=== PATIENT | male | born 1975 | race Hispanic/Latino ===

== ENCOUNTER 2021-04-14 09:21 | Inpatient (IN) | payer OTHER ==
[~2021-04-14] VITALS: Ht 167.6 cm; Wt 81.2 kg
--- NOTE | 2021-04-14 09:21 | NUR ---
PT TAKEN DIRECTLY TO RM 16 FOR TRIAGE, IN WHEELCHAIR O2 SAT 86 . [facility] NURSE AND MD NOTIFIED. ACCOMPANIED BY
[2021-04-14 10:10] LABS: HEMATOCRIT 43.7 % (39.0-50.0); HEMOGLOBIN 14.8 g/dl (14.0-18.0); IMMATURE GRANULOCYTES 0.4 % (0.0-5.0); MEAN CELL VOLUME 89.4 fL CALC (80.0-100.0); MEAN CORPUSCULAR HGB 30.3 pG CALC (26.0-32.0); MEAN CORPUSCULAR HGB CONC 33.9 g/dL CAL (32.0-36.0); NEUT# 6.63 thou/uL (1.82-7.42); RED BLOOD COUNT 4.89 mill/uL (4.70-6.10); RED CELL DISTRI WIDTH 12.8 % (11.5-15.5)
[2021-04-14 10:23] LABS: ALKALINE PHOSPHATASE 119 u/l (38-126); ANION GAP 15 (6-22 (CALC)); BILIRUBIN, TOTAL 0.8 mg/dL (0.0-1.4); BUN 10 mg/dL (9-20); BUN/CREATININE RATIO 14 (12-20 (CALC)); CARBON DIOXIDE 24 mmol/l (22-30); CHLORIDE 97 mmol/l (95-108); CREATININE 0.7 mg/dL (0.7-1.3); GFR > 60 ML/MIN (>=60 (CALC)); GFR FOR AFR.AMER. > 60 ML/MIN (>=60 (CALC)); POTASSIUM 3.9 mmol/l (3.5-5.1); SGOT/AST 74 u/l (17-59); SODIUM 132 mmol/l (137-146); TOTAL PROTEIN 7.7 g/dL (6.3-8.2)
--- NOTE | 2021-04-14 10:29 | NUR ---
STABLE ON MONITOR. 4L/NC, TOLERATING WELL. CALL LIGHT WITHIN REACH. WATER PROVIDED. NO OTHER CONCERNS VOICED.
[2021-04-14 10:32] LABS: MYOGLOBIN 40 ng/mL (0 - 121)
--- NOTE | 2021-04-14 11:52 | NUR ---
IV MEDS INFUSING WITHOUT DIFFICULTY. STABLE ON MONITOR. AT BEDSIDE. CALL LIGHT WITHIN REACH. NO CONCERNS VOICED.
[2021-04-14 12:32] LABS: URINE BILIRUBIN - DIPSTICK NEGATIVE (NEGATIVE); URINE BLOOD DIPSTICK NEGATIVE (NEGATIVE); URINE COLOR YELLOW; URINE GLUCOSE - DIPSTICK NEGATIVE (NEGATIVE); URINE KETONE NEGATIVE (NEGATIVE); URINE LEUK ESTERASE NEGATIVE (NEGATIVE); URINE PH 6.5 (4.5-8.0); URINE PROTEIN - DIPSTICK TRACE mg/dL (NEG-TRACE); URINE UROBILINOGEN - DIPSTICK 0.2 E.U./dL (0.2)
[2021-04-14 12:37] LABS: URINE NITRITE - DIPSTICK NEGATIVE (Negative)
--- NOTE | 2021-04-14 13:24 | NUR ---
ATTEMPTED TO CALL REPORT, NURSE TO CALL BACK.
[2021-04-14 14:00] VITALS: BP 108/75
--- NOTE | 2021-04-14 14:00 | NUR ---
BEDSIDE COMMODE PROVIDED FOR PT, REPORTS NEED FOR BM
--- NOTE | 2021-04-14 14:21 | NUR ---
REPORT GIVEN TO TEJAS COLLADO ON MEDSURG, PT ADMITTED TO [facility]
--- NOTE | 2021-04-14 14:35 | NUR ---
45 YEAR OLD MALE ARRIVED TO ED FROM HOME VIA PRIVATE VEHICLE--ADMITTED TO FLOOR VIA W/C ACCOMPANIED BY ER STAFF WITH DIAGNOSIS OF COVID PNEUMONIA. PATIENT IS ALERT, VERBAL, MAORI SPEAKING, YET SPEAKS FLUENTLY IN YI WELL, ABLE TO MAKE NEEDS KNOWN. TOLERATES MEDS WELL WHOLE. CONT OF BOWEL AND BLADDER--ABLE TO USE BSC INDEPENDENTLY. DENIES PAIN AT TIME OF ASSESSMENT. PIV SITE PATENT TO RIGHT AC AREA--FLUSHES WELL--SITE UNREMARKABLE. TO RECEIVE ABT THERAPY RELATED TO COVID PNEUMONIA. LAST BM TODAY. TELEMETRY IN PLACE WITH SR IN THE 70-80S IN ER. NKDA. REGULAR DIET/THIN LIQUIDS. SKIN ASSESSMENT COMPLETED--NO AREAS OF CONCERN NOTED. ORIENTED TO ROOM--C/L WITHIN REACH. WILL CONT TO MONITOR FOR ANY FURTHER CHANGES.
[2021-04-14 19:00] VITALS: BP 111/71
--- NOTE | 2021-04-14 20:10 | NUR ---
PT MEDICATED ORDERS PROVIDE AND ASSESSMENT COMPLETED AT THIS TIME. PT BREATHING IS SHALLOW AND LABORED UPON MY ENTERING THE ROOM. OXYGEN SAT LEVELS WERE AT 88% ON REGULAR NC 4L. OXYGEN WAS TURNED TO 6L TO BRING SAT LEVELS TO 91% AND PT PLACED IN PRONE POSITION. RESPIRATORY WAS CALLED FOR HIGHFLOW PLACEMENT.
--- NOTE | 2021-04-14 20:45 | NUR ---
PT WAS PLACED ON HIGHFLOW NC 7L AND OXYGEN SAT LEVELS ARE AT 94% ON HFNC 7L. BREATHING IS NON-LABORED AND EVEN AT THIS TIME. PT WAS INSTRUCTED THAT HE COULD TURN OVER, BUT TO LAY IN PRONE POSITION FOR AWHILE EVERY HOUR AND MUCH HE CAN FOR SLEEPING. VERBALIZED UNDERSTANDING. INCENTIVE SPIR WAS SUPPLIED AT THIS TIME, PT COUGHING DRY HACKING COUGH TO THE POINT OF GAGGING AND ALMOST VOMITING EACH TIME HE DEMONSTRATES ITS USE. HE WAS EDUCATED ON IT USE, BUT WILL NEED REINFORCED.
--- NOTE | 2021-04-15 | NUR ---
PT WAS SLEEPING, V/S ASSESSED AT THIS TIME. DENIES ANY OTHER NEEDS. RESP EVEN AND MILD LABORED.
[2021-04-15 00:31] VITALS: BP 99/62
[2021-04-15 04:00] VITALS: BP 110/75
--- NOTE | 2021-04-15 04:05 | NUR ---
V/S ASSESSED, OXYGEN SAT 93% ON 7LNC HIGHFLOW. PT DENIES ANY NEEDS. ENCOURAGED HIM TO CALL ANY NEEDS ARISE.
--- NOTE | 2021-04-15 07:00 | NUR ---
REPORT RECEIVED FROM TEJAS ZARAGOZA
[2021-04-15 09:17] VITALS: BP 111/72
--- NOTE | 2021-04-15 09:20 | NUR ---
PT RESTING IN SEMI FOWLERS POSITION,A&O X3;VS OBTAINED AND ASSESSMENT COMPLETED;PT DENIES ANY CURRENT PAIN OR DISCOMFORTS,PAIN SCALE AND REPORTING EDUCATED;RESPIRATIONS SHALLOW ON O2 @ 7L HF NC,DIMINISHED LUNG SOUNDS NOTED WITH NON-PRODUCTIVE COUGH;ABDOMEN SOFT ON PALPATION AND ACTIVE IN ALL 4 QUADRANTS;STRONG PEDAL PULSES;SKIN INTACT;TELE MONITORING IN PLACE;#20G TO RAC FLUSHED AND PATENT,ABX STARTED AT THIS TIME;PT REMAINS IN AIR/CONTACT DX DUE TO COVID 19 DX;PT DENIES ANY ADDITIONAL NEEDS AND IS ENCOURAGED TO CALL FOR ASSISTANCE IF NEEDED;FALL PRECAUTIONS IN PLACE WITH BED IN THE LOWEST POSITION AND CALL LIGHT IN REACH;WILL CONTINUE TO MONITOR
[2021-04-15 10:55] VITALS: BP 108/69
--- NOTE | 2021-04-15 11:50 | NUR ---
PT RESTING IN SEMI FOWLERS POSITION;RESPIRATIONS SHALLOW ON O2 @ 7L HF NC;PT DENIES ANY CURRENT PAIN OR NEEDS;TELE MONITORING IN PLACE;IV SITE PATENT;PT IS ENCOURAGED TO CALL FOR ASSISTANCE IF NEEDED;FALL PRECAUTIONS IN PLACE WITH CALL LIGHT IN REACH;WILL CONTINUE TO MONITOR
--- NOTE | 2021-04-15 12:14 | NUR ---
AT BEDSIDE DISCUSSING POC WITH PT.
[2021-04-15 13:03] LABS: HEMATOCRIT 42.9 % (39.0-50.0); HEMOGLOBIN 14.2 g/dl (14.0-18.0); IMMATURE GRANULOCYTES 0.3 % (0.0-5.0); MEAN CELL VOLUME 90.5 fL CALC (80.0-100.0); MEAN CORPUSCULAR HGB CONC 33.1 g/dL CAL (32.0-36.0); NEUT# 7.18 thou/uL (1.82-7.42); RED BLOOD COUNT 4.74 mill/uL (4.70-6.10); RED CELL DISTRI WIDTH 12.7 % (11.5-15.5)
[2021-04-15 13:48] LABS: ALBUMIN 3.4 g/dL (3.2-5.0); ALKALINE PHOSPHATASE 103 u/l (38-126); ANION GAP 14 (6-22 (CALC)); BUN 17 mg/dL (9-20); BUN/CREATININE RATIO 25 (12-20 (CALC)); CARBON DIOXIDE 26 mmol/l (22-30); CHLORIDE 101 mmol/l (95-108); CREATININE 0.7 mg/dL (0.7-1.3); GFR > 60 ML/MIN (>=60 (CALC)); GFR FOR AFR.AMER. > 60 ML/MIN (>=60 (CALC)); POTASSIUM 3.9 mmol/l (3.5-5.1); SGOT/AST 60 u/l (17-59); SODIUM 137 mmol/l (137-146); TOTAL PROTEIN 6.4 g/dL (6.3-8.2)
[2021-04-15 13:54] LABS: BILIRUBIN, TOTAL 0.4 mg/dL (0.0-1.4)
[2021-04-15 15:00] VITALS: BP 115/68
--- NOTE | 2021-04-15 15:45 | NUR ---
PT RESTING IN SEMI FOWLERS POSITION;RESPIRATIONS SHALLOW ON O2 @ 7L HF NC;PT DENIES ANY CURRENT PAIN OR DISCOMFORTS;TELE MONITORING IN PLACE;IV SITE PATENT;PT ENCOURAGED TO CALL FOR ASSISTANCE IF NEEDED;FALL PRECAUTIONS IN PLACE WITH CALL LIGHT IN REACH;WILL CONTINUE TO MONITOR
[2021-04-15 18:00] VITALS: BP 114/70
--- NOTE | 2021-04-15 20:50 | NUR ---
PT MEDICATED ORDERS PROVIDE AND ASSESSMENT ALSO COMPLETED AT THIS TIME. 02NC HF@6L ON AND SAT LEVELS ARE 96%. OXYGEN TITRATED TO 5L, HE IS HOLDING STEADY AT 95% WHILE I WAS IN THE ROOM. RECHECKING OFTEN. STABLE AT 95% ON 5LNC HF AT THIS TIME. PT REPORTS FEELING SOMEWHAT LESS SOB. I OFFERED TO ASSIST HIM WALKING AROUND THE ROOM OR TO SIT IN THE RECLINER, HE REPLIED WITH "MAYBE TOMORROW." I ADVISED THAT WE CAN PROVIDE EXTENDED OXYGEN TUBING FOR EASIER AMBULATION, REPLIED AGAIN, "MAYBE TOMORROW." NO S/O DISTRESS. PT DEMONSTRATED USE OF IS, HE WAS USING IT I ENTERED THE ROOM. NO COUGHING SPASMS IN RESPONSE HAPPENED LAST NIGHT.
[2021-04-16 01:48] VITALS: BP 108/66
--- NOTE | 2021-04-16 05:30 | NUR ---
OXYGEN SAT ASSESSED TO BE 93% ON 4LNC HIGHFLOW.
[2021-04-16 05:34] VITALS: BP 101/63
[2021-04-16 05:40] LABS: HEMATOCRIT 42.3 % (39.0-50.0); HEMOGLOBIN 14.1 g/dl (14.0-18.0); IMMATURE GRANULOCYTES 0.5 % (0.0-5.0); MEAN CORPUSCULAR HGB 30.3 pG CALC (26.0-32.0); MEAN CORPUSCULAR HGB CONC 33.3 g/dL CAL (32.0-36.0); NEUT# 3.91 thou/uL (1.82-7.42); RED BLOOD COUNT 4.65 mill/uL (4.70-6.10); RED CELL DISTRI WIDTH 12.9 % (11.5-15.5)
[2021-04-16 05:59] LABS: ALBUMIN 3.2 g/dL (3.2-5.0); ALKALINE PHOSPHATASE 88 u/l (38-126); ANION GAP 9 (6-22 (CALC)); BILIRUBIN, TOTAL 0.5 mg/dL (0.0-1.4); BUN 18 mg/dL (9-20); BUN/CREATININE RATIO 28 (12-20 (CALC)); CARBON DIOXIDE 28 mmol/l (22-30); CHLORIDE 104 mmol/l (95-108); CREATININE 0.6 mg/dL (0.7-1.3); GFR > 60 ML/MIN (>=60 (CALC)); GFR FOR AFR.AMER. > 60 ML/MIN (>=60 (CALC)); POTASSIUM 3.9 mmol/l (3.5-5.1); SGOT/AST 48 u/l (17-59); SODIUM 137 mmol/l (137-146); TOTAL PROTEIN 6.1 g/dL (6.3-8.2)
--- NOTE | 2021-04-16 08:00 | NUR ---
PT IN BED WHEN ENTERED. PT IS COVID +. ON 4L OF 02 NC. ALERT AND ORIENTED. S1 AND S2 HEARD UPON ASCULTATION. LUNGS CLEAR. BOWELS ACTIVE. IV PATENT AND HEALTHY. PEDAL PULSES STRONG BILATERALLY. PT SKIN IS WARM AND DRY. PT IS TRISTANIAN SPEAKING. NO PAIN INDICATED. NO DISTRESS NOTED. CALL LIGHT WITHIN REACH.
[2021-04-16 09:20] VITALS: BP 110/59
[2021-04-16 10:37] VITALS: BP 103/68
--- NOTE | 2021-04-16 12:00 | NUR ---
PT IN BED. NO DISTRESS NOTED. 02 ON. PT DID INCENTIVE SPIROMETER X4 REPS. NO DISTRESS NOTED. CALL LIGHT WITHIN REACH.
--- NOTE | 2021-04-16 12:22 | NUR ---
DR. [place] AND Sid PEPE. K[employer] SERVER AT BEDSIDE DISCUSSING POC.
[2021-04-16 15:11] VITALS: BP 103/70
--- NOTE | 2021-04-16 16:00 | NUR ---
PT IN BED. NO DISTRESS NOTED. CALL LIGHT WITHIN REACH.
--- NOTE | 2021-04-16 19:30 | NUR ---
PATIENT IS AWAKE, ALERT AND ORIENTED X3. ABLE TO MAKE NEEDS KNOWN. RESPIRATIONS NONLABORED. O2 4L N/C IN PLACE. DENIES PAIN. ON TELEMETRY SR. ASSESSMENT COMPLETED AND CHARTED. BED IN LOW POSITION. CALL LIGHT WITHIN REACH.
[2021-04-16 19:41] VITALS: BP 109/69
--- NOTE | 2021-04-17 | NUR ---
PATIENT RESTING QUIETLY. NO COMPLAINTS. NO ACUTE DISTRESS NOTED. BED IN LOW POSITION. CALL LIGHT WITHIN REACH.
[2021-04-17 00:36] VITALS: BP 112/66
--- NOTE | 2021-04-17 04:28 | NUR ---
PATIENT RESTING QUIELTY. NO ACUTE DISTRESS OBSERVED. BED IN LOW POSITION. CALL LIGHT WITHIN REACH.
[2021-04-17 04:32] VITALS: BP 112/72
[2021-04-17 07:13] LABS: HEMATOCRIT 44.1 % (39.0-50.0); HEMOGLOBIN 14.5 g/dl (14.0-18.0); MEAN CELL VOLUME 91.7 fL CALC (80.0-100.0); MEAN CORPUSCULAR HGB 30.1 pG CALC (26.0-32.0); MEAN CORPUSCULAR HGB CONC 32.9 g/dL CAL (32.0-36.0); RED BLOOD COUNT 4.81 mill/uL (4.70-6.10); RED CELL DISTRI WIDTH 12.8 % (11.5-15.5)
[2021-04-17 07:26] LABS: ALBUMIN 3.3 g/dL (3.2-5.0); ALKALINE PHOSPHATASE 97 u/l (38-126); ANION GAP 12 (6-22 (CALC)); BILIRUBIN, TOTAL 0.6 mg/dL (0.0-1.4); BUN 18 mg/dL (9-20); BUN/CREATININE RATIO 27 (12-20 (CALC)); C-REACTIVE PROTEIN 3.6 mg/dL (0-0.9); CARBON DIOXIDE 24 mmol/l (22-30); CHLORIDE 104 mmol/l (95-108); CREATININE 0.7 mg/dL (0.7-1.3); GFR > 60 ML/MIN (>=60 (CALC)); GFR FOR AFR.AMER. > 60 ML/MIN (>=60 (CALC)); MAGNESIUM 2.3 mg/dL (1.6-2.3); POTASSIUM 4.4 mmol/l (3.5-5.1); SODIUM 135 mmol/l (137-146); TOTAL PROTEIN 6.2 g/dL (6.3-8.2)
[2021-04-17 07:30] LABS: SGOT/AST 122 u/l (17-59)
--- NOTE | 2021-04-17 07:40 | NUR ---
PT IN BED WHEN ENTERED. ALERT AND ORIENTED. VITALS AND ASSESSMENT DONE. LUNGS CRACKLES NOTED. BOWELS ACTIVE IN ALL 4 QUADS. PT IS COVID+. ON 4L OF 02. SKIN WARM AND DRY. SKIN INTACT. PEDAL PULSES STRONG BILATERALLY. IV PATENT AND HEALTHY. NO PAIN INDICATED. CALL LIGHT WITHIN REACH.
[2021-04-17 08:00] VITALS: BP 122/74
[2021-04-17 10:30] VITALS: BP 98/67
--- NOTE | 2021-04-17 11:58 | NUR ---
PT IN BED. INCENTIVE SPIROMETER DONE X4. NO DISTRESS NOTED. CALL LIGHT WITHIN REACH.
--- NOTE | 2021-04-17 12:03 | NUR ---
DR. [place] AND Sid PEPE. AT BEDSIDE DISCUSSING POC.
--- NOTE | 2021-04-17 12:06 | NUR ---
Sid GARCIA TITRATED PT TO 3L OF 02. STATING 93-94%.
--- NOTE | 2021-04-17 12:13 | NUR ---
PT IN BED. NO DISTRESS NOTED. CALL LIGHT WITHIN REACH.
[2021-04-17 14:37] VITALS: BP 101/65
--- NOTE | 2021-04-17 16:00 | NUR ---
PT IN BED. NO DISTRESS NOTED. NO PAIN INDICATED. CALL LIGHT WITHIN REACH.
[2021-04-17 18:00] VITALS: BP 109/69
--- NOTE | 2021-04-17 20:00 | NUR ---
PATIENT AWAKE ALERT, DENIES PAIN. RESPIRATIONS NONLABORED. ON TELEMETRY. HR REG. NO COMPLAINTS. ASSESSMENT COMPLETED AND CHARTED. BED IN LOW POSITION. CALL LIGHT WITHIN REACH.
[2021-04-18] VITALS: BP 97/72
--- NOTE | 2021-04-18 | NUR ---
RESTING QUIETLY. NO ACUTE DISTRESS NOTED. BED IN LOW POSITION. CALL LIGHT WITHIN REACH.
[2021-04-18 04:00] VITALS: BP 95/66
--- NOTE | 2021-04-18 04:10 | NUR ---
NO ACUTE DISTRESS OBSERVED. BED IN LOW POSITION. CALL LIGHT WITHIN REACH.
[2021-04-18 06:05] LABS: HEMATOCRIT 45.8 % (39.0-50.0); HEMOGLOBIN 15.1 g/dl (14.0-18.0); IMMATURE GRANULOCYTES 1.2 % (0.0-5.0); MEAN CELL VOLUME 91.4 fL CALC (80.0-100.0); MEAN CORPUSCULAR HGB 30.1 pG CALC (26.0-32.0); NEUT# 4.4 thou/uL (1.82-7.42); RED BLOOD COUNT 5.01 mill/uL (4.70-6.10); RED CELL DISTRI WIDTH 12.6 % (11.5-15.5)
[2021-04-18 06:27] LABS: ALBUMIN 3.3 g/dL (3.2-5.0); ALKALINE PHOSPHATASE 97 u/l (38-126); ANION GAP 13 (6-22 (CALC)); BILIRUBIN, TOTAL 0.6 mg/dL (0.0-1.4); BUN 15 mg/dL (9-20); BUN/CREATININE RATIO 26 (12-20 (CALC)); CARBON DIOXIDE 25 mmol/l (22-30); CHLORIDE 102 mmol/l (95-108); CREATININE 0.6 mg/dL (0.7-1.3); GFR > 60 ML/MIN (>=60 (CALC)); GFR FOR AFR.AMER. > 60 ML/MIN (>=60 (CALC)); POTASSIUM 4.7 mmol/l (3.5-5.1); SGOT/AST 138 u/l (17-59); SODIUM 136 mmol/l (137-146); TOTAL PROTEIN 6.3 g/dL (6.3-8.2)
--- NOTE | 2021-04-18 07:05 | NUR ---
REPORT REC FROM Vinny DALAL RN
--- NOTE | 2021-04-18 08:33 | NUR ---
PT SITTING IN BED. NO DISTRESS NOTED. A&O X4. TURKISH SPEAKING. O2 VIA NC @3L IN PLACE SUSTAINING 96%, O2 TITRATED DOWN TO 2L SUSTAINING 93-94%. O2 TO BE FREQUENTLY MONITORED FOR OXYGEN TITRATION NEEDS. CLEAR/DIMINISHED BREATH SOUNDS UPON AUSCULTATION WITH SLIGHT CRACKLES ON BILATERALL LOWER LOBES POSTERIORLY. IS DEVICE AT BEDSIDE, PT DEMONSTRATING PROPER USE OF DEVICE CURRENTLY ACHIEVING 1000 ML X8 REPITITIONS, GOAL SET AT 1500 ML. PT ENCOURAGED TO USE IS DEVICE Q1HRS WHILE AWAKE X10 REPITITIONS. TELEMERTY MONITOR IN PLACE. #20G RAC HEALTHY AND PATENT, IV ABX INITIATED AT THIS TIME. ACTIVE BOWEL SOUNDS X4 QUADRANTS. ISOLATION PRECAUTIONS IN PLACE; PT EDUCATED ON THE NEED FOR THE PRECAUTIONS. ASSESSMENT COMPLETED. DISCUSSED POC. CALL LIGHT WITHIN REACH.
[2021-04-18 12:10] VITALS: BP 95/65
--- NOTE | 2021-04-18 12:29 | NUR ---
DR [place] AND Dillon PEPE APRN AT BEDSIDE DISCUSSING POC
--- NOTE | 2021-04-18 14:41 | NUR ---
PT IN BED. NO DISTRESS NOTED. CALL LIGHT WITHIN REACH.
--- NOTE | 2021-04-18 15:10 | NUR ---
SPOKE WITH MICHAELLE, PT PROVIDED CARD INFORMATION TO PAY FOR HOME OXYGEN. INFORMATION PROVIDED TO EULALIA.
[2021-04-18] MEDS ORDERED: DEXAMETHASON6 MG PO (15:22)
[2021-04-18] MEDS ORDERED: ZITHROMAX250 MG PO (15:22)
[2021-04-18] MEDS ORDERED: ASPIRIN REGULA325 M1 PO (15:23)
--- NOTE | 2021-04-18 17:25 | NUR ---
Discharge instructions given. Patient verbalizes understanding of same. Discharged in stable condition via Wheelchair to Home with staff. All belongings sent with pt. Home o2 applied, pt instructed how to properly use device. Pt encouraged to buy O2 probe. Pt educated on the importance of taking prescribed medications, following up with a PCP, and using o2 as prescribed. Pt instructed to come back if new or worsening symptoms.
== END 2021-04-18 17:30 | disposition home or self-care (01) | DRG 177 ==
LOC: ED 09:21 → ED-I 11:44 → ED 12:05 → MS2 12:06
PROVIDERS: Emergency Medicine; Nurse Practitioner; ADMIT Internal Medicine; ATTEND Internal Medicine
PROC: XW033E5 Introduction of Remdesivir Anti-infective into Peripheral Vein, Percutaneous Approach, New Technology Group 5 (ICD-10-PCS; principal; 2021-04-14)
DX: U07.1 COVID-19 (principal); J12.82 Pneumonia due to coronavirus disease 2019; J96.01 Acute respiratory failure with hypoxia; E87.1 Hypo-osmolality and hyponatremia
CPT/HCPCS: J1650; Q9967